=== PATIENT | male | born 1950 | race African-American/Black ===

== ENCOUNTER 2018-09-27 11:15 | Outpatient (CLI) | payer OTHER ==
--- NOTE | 2018-09-30 07:12 | ULT ---
LEFT LOWER EXTREMITY VENOUS ULTRASOUND WITH DOPPLER: HISTORY: Left leg swelling and edema. COMPARISON: None. TECHNIQUE: Osei-scale, color-flow, and Doppler imaging with spectral waveform analysis was performed of the left lower extremity venous system. FINDINGS: There is compressibility, presence of flow, and augmentation in the common femoral vein, femoral vein , and popliteal vein. There is flow in the greater saphenous vein, profunda vein, and posterior tibi al vein. In the left calf, there does appear to be a 4.8 x 1.5 x 3.4 cm nonvascular focus, which may represent a hematoma. Correlate clinically. IMPRESSION: 1. No evidence of thrombus in the left lower extremity deep venous system. 2. Soft tissue echotexture in the calf, which may represent a hematoma. Follow up imaging in 1 week to ensure expected decrease of probable hematoma. Results of the study were discussed with Dr. Barber 09/27/2018 at 12:16 p.m. CODE CR POS: CARLOS
== END 2018-09-27 11:16 | disposition home or self-care (01) ==
LOC: ULT 11:15
PROVIDERS: ATTEND Family Medicine
DX: M79.89 Other specified soft tissue disorders (principal)

== ENCOUNTER 2020-08-24 02:11 | Inpatient (IN) | payer MEDICARE ==
--- NOTE | 2020-08-24 04:06 | PDOC.HHP ---
Hospitalist HPI Shortness of breath History of Present Illness: This is a 70-year-old male patient with a history of hypertension, hy perlipidemia and prostate cancer status post resection who presents today with worsening shortness of breath for the past 6 days. He was transferred from [place] [facility] on account of elevated troponin. Patient notes that his son has Covid. Is been having shortness of breath and had test about 5 days ago which was positive. With worsening shortness of breath and cough with intermittent fever he presented to [place] where he was evaluated. At [place] his blood pressure was 179/93, pulse 94, respiratory 18, saturation 96 on room air. Temperature was 99.5. His labs showed WBC of 4.4, hemoglobin of 12.2 and platelets 126. Also had hyponatremia of 135, creatinine 2.19 from a baseline of 1.88 about 5 months ago. Troponin was noted to be elevated at 0.17. Urinalysis was generally negative and Covid tested positive. Imaging showed no unremarkable changes on chest x-ray, he was started on 1 L normal saline, received doxycycline and aspirin prior to transfer here for higher level care. Allergies/Adverse Reactions: Allergy/AdvReac Type Severity Reaction Status Date / Time No Known Allergies Allergy Unverified 03/31/13 10:14 Home Medications: Medication Instructions Recorded Confirmed Type Allopurinol [Zyloprim] 300 mg PO DAILY 03/31/13 03/31/13 History Amlodipine [Norvasc] 10 mg PO DAILY 03/31/13 03/31/13 History Atorvastatin Calcium [Lipitor] 10 mg PO DAILY 03/31/13 03/31/13 History Fluticasone Propionate [Flovent 44 mcg INH BID 03/31/13 03/31/13 History HFA 44 mcg] Lisinopril/Hydrochlorothiazide 03/31/13 03/31/13 History [Zestoretic] Metoprolol Tartrate [Lopressor] 100 mg PO BID 03/31/13 03/31/13 History hydrALAZINE HCl [Apresoline] 50 mg PO QID 03/31/13 03/31/13 History HYDROcodone/Acetaminophen [[place] 1 each PO Q4HR PRN 04/01/13 04/01/13 History 10-325 Tablet] Warfarin Sodium [Coumadin] 2.5 mg PO DAILY@1700 04/01/13 04/01/13 History Acetaminophen With Codeine 1 - 2 tab PO Q4H PRN 04/02/13 04/02/13 History [Tylenol with Codeine #4 Tablet] Past History: PMHx: Hypertension, hyperlipidemia, prostate cancer PSHx: Prostate resection FHx: None of significance Social: Lives with family, does not smoke or drink alcohol. Hospitalist HPI ROS Constitutional: reports: fever. denies: chills, sweats, weakness Respiratory: reports: cough, dry, shortness of breath, SOB with excertion. denies: hemoptysis Gastrointestinal: denies: nausea, vomiting, abdominal pain Genitourinary: denies: dysuria, frequency, incontinence Neurological: denies: weakness, numbness, incoordination, change in speech All other systems reviewed; all pertinent +/- noted in HPI/Subj Hospitalist Exam General Appearance: awake alert Eye: PERRL, anicteric sclera ENT: normocephalic atraumatic Heart: RRR, no murmur, no gallops, no rubs Respiratory: CTAB, no wheezes, no rales, no ronchi Gastrointestinal: soft, non-tender, non-distended, normal bowel sounds Extremities: no cyanosis, no clubbing, no edema Neurological: cranial nerve grossly intact, no weakness, no focal deficits Psychiatric: normal affect, normal behavior, A&O x 3 Hospitalist H&P A/P Plan: This is a 70-year-old male patient history of hypertension who presents with worsening shortness of breath in the setting of Covid and infection. He was transferred from [place] with elevated troponin with concerns for NSTEMI. COVID-19 infection. Patient is coughing may possibly have pneumonia however not apparent on chest x- ray. Start vitamins D/C and zinc Order CRP ferritin and D-dimer Close monitoring. NSTEMI Unclear etiology. He denies chest pain History of hypertension EKG shows left ventricular hypertrophy with left atrial enlargement however no c oncerning ST segment or T wave abnormalities. This may be related to Covid Patient received aspirin. Hold full anticoagulation for now To reevaluate in a.m. for stress test. Keep n.p.o. Consider cardiology consult in a.m. AVERY/CKD Patient has baseline of up to 1.9 and 2.04. This may be CKD Rehydrate and monitor. Normocytic anemia Hemoglobin the low range of normal Possible iron deficiency of CKD Iron studies Monitor CBC. Hyponatremia Sodium 135a small We will monitor this. VT prophylaxisHeparin CODE STATUSfull
[2020-08-24 05:32] LABS: Troponin I 0.123 ng/mL (< 0.028)
[2020-08-24] MEDS ORDERED: Enoxaparin Sodium 40 MG/0.4 ML SYRINGE SC SCH (09:00)
[2020-08-24] MEDS ORDERED: hydrALAZINE 25 MG TAB PO SCH (09:00)
[2020-08-24] MEDS ORDERED: Non-Formulary Item 1 EACH (Hydralazine Hcl [Apresoline] 50 MG Tab) PO SCH (09:00)
[2020-08-24 09:01] LABS: Troponin I 0.099 ng/mL (< 0.028)
[2020-08-24] MEDS ORDERED: HYDROcodone/Acetaminophen 10/325 mg Tablet PO PRN (11:43)
[2020-08-24 12:10] VITALS: BMI 32.5
[2020-08-24] MEDS: Enoxaparin Sodium 40 MG/0.4 ML SYRINGE SC SCH ×2 (12:23→19:56)
[2020-08-24] MEDS: Amlodipine 10 MG TAB PO SCH (12:43)
[2020-08-24] MEDS: Cholecalciferol (Vitamin D3) 400 UNITS TAB PO SCH (12:43)
[2020-08-24] MEDS: Ascorbic Acid 500 mg Chewable Tablet PO SCH (12:43)
[2020-08-24] MEDS: hydrALAZINE 25 MG TAB PO SCH ×2 (16:17→19:55)
[2020-08-24] MEDS ORDERED: REMDESIVIR (EUA) 200 MG in Sodium Chloride 0.9% 250 ML 210 ML IV SCH (17:00)
[2020-08-24] MEDS ORDERED: Meperidine HCl/PF 25 MG/ML VIAL SLOW IVP SCH (18:30)
[2020-08-24] MEDS: Acetaminophen 650 MG/20.3 ML UDCUP PO PRN (18:33)
[2020-08-24] MEDS: Mometasone 100 MCG/PUFF (1 INHALER) INH SCH (18:42)
[2020-08-24] MEDS: Metoprolol Tartrate 100 MG TAB PO SCH (19:55)
[2020-08-25] MEDS: Benzonatate 100 MG CAP PO PRN ×2 (01:06→14:42)
[2020-08-25] MEDS ORDERED: Melatonin 3 MG TAB ONE (02:31)
[2020-08-25 07:22] LABS: #Lymphocytes 0.8 thou/uL (1.20-3.40); #Monocytes 0.2 thou/uL (0.11-0.59); #Neutrophils 6.2 thou/uL (1.40-6.50); %Basophils 0.2 % (0.0-1.0); %Eosinophils 0.1 % (0.0-10.0); %Lymphocytes 10.9 % (21.0-51.0); %Neutrophils 85.9 % (42.0-75.0); Hemoglobin 12.8 g/dL (14.0-18.0); Mean Corpuscular HGB CONC 31.3 g/dL (32.0-36.0); Mean Corpuscular Hemoglobin 24.3 pg (27.0-31.0); Mean Corpuscular Volume 77.7 fL (78.0-98.0); Mean Platelet Volume 10.7 fL (7.4-10.4); Platelet Count 142 thou/uL (130-400); RBC Distribution Width 13.1 % (11.5-14.5); Red Blood Cell (RBC) Count 5.25 mill/uL (4.70-6.10); White Blood Cell (WBC) Count 7.2 thou/uL (4.8-10.8)
[2020-08-25 07:24] LABS: Anion Gap 16 mmol/L (10-20); BUN (Urea Nitrogen) 25 mg/dL (8.4-25.7); Calc. Creatinine Clearance 52 mL/min (70-130); Calcium 8.6 mg/dL (7.8-10.44); Carbon Dioxide 24 mmol/L (23-31); Chloride 97 mmol/L (98-107); Glucose 150 mg/dL (80-115); Potassium 3.8 mmol/L (3.5-5.1); Sodium 133 mmol/L (136-145)
[2020-08-25] MEDS: Mometasone 100 MCG/PUFF (1 INHALER) INH SCH ×2 (07:58→18:00)
[2020-08-25] MEDS: Ascorbic Acid 500 mg Chewable Tablet PO SCH (11:07)
[2020-08-25] MEDS: Enoxaparin Sodium 40 MG/0.4 ML SYRINGE SC SCH ×2 (11:07→20:23)
[2020-08-25] MEDS: Metoprolol Tartrate 100 MG TAB PO SCH ×2 (11:08→20:22)
[2020-08-25] MEDS: hydrALAZINE 25 MG TAB PO SCH ×3 (11:08→20:22)
[2020-08-25] MEDS: Cholecalciferol (Vitamin D3) 400 UNITS TAB PO SCH (11:08)
[2020-08-25] MEDS: Amlodipine 10 MG TAB PO SCH (11:08)
[2020-08-25] MEDS: Aspirin 81 mg Enteric Coated Tablet PO SCH (11:08)
[2020-08-25] MEDS: Allopurinol 300 MG TAB PO SCH (11:08)
[2020-08-25] MEDS: Acetaminophen 650 MG/20.3 ML UDCUP PO PRN (11:09)
--- NOTE | 2020-08-25 11:48 | PDOC.HOSPP ---
- Subjective Encounter Date: 08/25/20 Encounter Time: 07:00 Subjective: Patient seen for follow-up regarding COVID-19 infection. He denies chest pain or shortness of breath. - Objective Vital Signs & Weight: Vital Signs (12 hours) Temp Pulse Resp BP Pulse Ox 08/25/20 11:35 99.2 F 94 18 175/99 H 96 08/25/20 11:08 96 08/25/20 08:00 100.7 F H 96 20 150/90 H 95 08/25/20 04:00 100.1 F H 97 22 H 145/86 H 95 Weight Weight 220 lb I&O: 08/24/20 08/25/20 08/26/20 06:59 06:59 06:59 Intake Total 845 300 Balance 845 300 Result Diagrams: 08/25/20 04:23 08/25/20 03:30 Additional Labs: Labs and MAR reviewed by me EKG Reviewed by me: Yes (Telemetry shows normal sinus rhythm) Hospitalist ROS - Review of Systems Constitutional: denies: fever, chills, sweats, weakness, malaise Respiratory: reports: cough, dry Cardiovascular: denies: chest pain, palpitations, orthopnea, paroxysmal noc. dyspnea, edema, light headedness - Medication Medications: Active Medications Generic Name Dose Route Start Last Admin Trade Name Freq PRN Reason Stop Dose Admin Acetaminophen 650 mg 08/24/20 16:21 08/25/20 11:09 Acetaminophen 650 Mg/20.3 Ml Udcup PO 650 mg Q6H PRN Administration Fever > 101 Allopurinol 300 mg 08/25/20 09:00 08/25/20 11:08 Allopurinol 300 Mg Tab PO 300 mg DAILY FRANCO Administration Amlodipine Besylate 10 mg 08/24/20 09:00 08/25/20 11:08 Amlodipine 10 Mg Tab PO 10 mg DAILY FRANCO Administration Ascorbic Acid 1,000 mg 08/24/20 09:00 08/25/20 11:07 Ascorbic Acid 500 Mg Chewable Tablet PO 1,000 mg DAILY FRANCO Administration Aspirin 81 mg 08/25/20 09:00 08/25/20 11:08 Aspirin 81 Mg Enteric Coated Tablet PO 81 mg DAILY FRANCO Administration Benzonatate 100 mg 08/25/20 00:23 08/25/20 01:06 Benzonatate 100 Mg Cap PO 100 mg TIDPRN PRN Administration Cough Cholecalciferol 400 units 08/24/20 09:00 08/25/20 11:08 Cholecalciferol (Vitamin D3) 400 Units Tab PO 400 units DAILY FRANCO Administration Enoxaparin Sodium 40 mg 08/24/20 09:00 08/25/20 11:07 Enoxaparin Sodium 40 Mg/0.4 Ml Syringe SC 40 mg 0900,2100 FRANCO Administration Hydralazine HCl 100 mg 08/24/20 15:00 08/25/20 11:08 Hydralazine 25 Mg Tab PO 100 mg TID FRANCO Administration Metoprolol Tartrate 100 mg 08/24/20 21:00 08/25/20 11:08 Metoprolol Tartrate 100 Mg Tab PO 100 mg BID FRANCO Administration Mometasone Furoate 100 mcg 08/24/20 18:30 08/25/20 07:58 Mometasone 100 Mcg/Puff (1 Inhaler) INH 1 inh BID-RT FRANCO Administration Hospitalist Exam Vitals: Vital Signs (12 hours) Temp Pulse Resp BP Pulse Ox 08/25/20 11:35 99.2 F 94 18 175/99 H 96 08/25/20 11:08 96 08/25/20 08:00 100.7 F H 96 20 150/90 H 95 08/25/20 04:00 100.1 F H 97 22 H 145/86 H 95 Weight Weight 220 lb General Appearance: awake alert Eye: anicteric sclera ENT: normocephalic atraumatic Neck: supple Heart: RRR Respiratory: CTAB Gastrointestinal: soft Skin: no rashes Psychiatric: normal affect, normal behavior Hosp A/P - Plan COVID-19 infection. Patient received convalescent plasma yesterday. Continue vitamin D and zinc. Patient has been started on remdesivir. NSTEMI Non-ST elevation myocardial infarction type II secondary to COVID-19 infection Patient denies any chest pain. CKD stage III Stable Hyponatremia Mild, likely asymptomatic
[2020-08-25] MEDS ORDERED: Melatonin 3 MG TAB PO PRN (16:35)
[2020-08-25] MEDS: REMDESIVIR (EUA) 100 MG in Sodium Chloride 0.9% 250 ML 230 ML IV SCH (16:50)
[2020-08-25] MEDS: Guaifenesin DM 100-10/5 ML UDCUP PO PRN ×2 (16:50→22:05)
[2020-08-25] MEDS: Atorvastatin Calcium 10 MG TAB PO SCH (20:22)
[2020-08-26] MEDS: Mometasone 100 MCG/PUFF (1 INHALER) INH SCH ×2 (06:45→17:54)
[2020-08-26] MEDS: hydrALAZINE 25 MG TAB PO SCH ×3 (08:26→20:11)
[2020-08-26] MEDS: Allopurinol 300 MG TAB PO SCH (08:27)
[2020-08-26] MEDS: Aspirin 81 mg Enteric Coated Tablet PO SCH (08:27)
[2020-08-26] MEDS: Cholecalciferol (Vitamin D3) 400 UNITS TAB PO SCH (08:27)
[2020-08-26] MEDS: Enoxaparin Sodium 40 MG/0.4 ML SYRINGE SC SCH ×2 (08:27→20:15)
[2020-08-26] MEDS: Ascorbic Acid 500 mg Chewable Tablet PO SCH (08:27)
[2020-08-26] MEDS: Amlodipine 10 MG TAB PO SCH (08:27)
[2020-08-26] MEDS: Metoprolol Tartrate 100 MG TAB PO SCH ×2 (08:27→20:15)
--- NOTE | 2020-08-26 14:23 | PDOC.HOSPP ---
- Subjective Encounter Date: 08/26/20 Encounter Time: 07:00 Subjective: Patient seen in follow-up for COVID-19 infection. He reports cough is better. - Objective Vital Signs & Weight: Vital Signs (12 hours) Temp Pulse Resp BP BP Pulse Ox 08/26/20 12:28 98.1 F 78 18 132/72 98 08/26/20 08:37 98.3 F 77 18 141/83 H 94 L 08/26/20 03:33 98.0 F 78 24 H 176/97 H 92 L Weight Weight 212 lb 3.2 oz I&O: 08/25/20 08/26/20 08/27/20 06:59 06:59 06:59 Intake Total 845 1350 Balance 845 1350 Result Diagrams: 08/25/20 04:23 08/25/20 03:30 Additional Labs: I reviewed patient's labs and MAR EKG Reviewed by me: Yes (Normal sinus rhythm on telemetry) Hospitalist ROS - Review of Systems Respiratory: reports: cough, sputum. denies: dry, shortness of breath, hemoptysis, SOB with excertion, pleuritic pain, wheezing Cardiovascular: denies: chest pain, palpitations, orthopnea, paroxysmal noc. dyspnea, edema, light headedness - Medication Medications: Active Medications Generic Name Dose Route Start Last Admin Trade Name Freq PRN Reason Stop Dose Admin Acetaminophen 650 mg 08/24/20 16:21 08/25/20 11:09 Acetaminophen 650 Mg/20.3 Ml Udcup PO 650 mg Q6H PRN Administration Fever > 101 Allopurinol 300 mg 08/25/20 09:00 08/26/20 08:27 Allopurinol 300 Mg Tab PO 300 mg DAILY FRANCO Administration Amlodipine Besylate 10 mg 08/24/20 09:00 08/26/20 08:27 Amlodipine 10 Mg Tab PO 10 mg DAILY FRANCO Administration Ascorbic Acid 1,000 mg 08/24/20 09:00 08/26/20 08:27 Ascorbic Acid 500 Mg Chewable Tablet PO 1,000 mg DAILY FRANCO Administration Aspirin 81 mg 08/25/20 09:00 08/26/20 08:27 Aspirin 81 Mg Enteric Coated Tablet PO 81 mg DAILY FRANCO Administration Atorvastatin Calcium 20 mg 08/25/20 21:00 08/25/20 20:22 Atorvastatin Calcium 10 Mg Tab PO 20 mg HS FRANCO Administration Benzonatate 100 mg 08/25/20 00:23 08/25/20 14:42 Benzonatate 100 Mg Cap PO 100 mg TIDPRN PRN Administration Cough Cholecalciferol 400 units 08/24/20 09:00 08/26/20 08:27 Cholecalciferol (Vitamin D3) 400 Units Tab PO 400 units DAILY FRANCO Administration Enoxaparin Sodium 40 mg 08/24/20 09:00 08/26/20 08:27 Enoxaparin Sodium 40 Mg/0.4 Ml Syringe SC 40 mg 0900,2100 FRANCO Administration Guaifenesin/Dextromethorphan 15 ml 08/25/20 15:17 08/25/20 22:05 Guaifenesin Dm 100-10/5 Ml Udcup PO 15 ml Q4H PRN Administration Cough Hydralazine HCl 100 mg 08/24/20 15:00 08/26/20 08:26 Hydralazine 25 Mg Tab PO 100 mg TID FRANCO Administration Remdesivir 100 mg/ Sodium 250 mls @ 250 mls/hr 08/25/20 17:00 08/25/20 16:50 Chloride IV 08/28/20 17:59 250 mls 1700 FRANCO Administration Metoprolol Tartrate 100 mg 08/24/20 21:00 08/26/20 08:27 Metoprolol Tartrate 100 Mg Tab PO 100 mg BID FRANCO Administration Mometasone Furoate 100 mcg 08/24/20 18:30 08/26/20 06:45 Mometasone 100 Mcg/Puff (1 Inhaler) INH 1 inh BID-RT FRANCO Administration Hospitalist Exam Vitals: Vital Signs (12 hours) Temp Pulse Resp BP BP Pulse Ox 08/26/20 12:28 98.1 F 78 18 132/72 98 08/26/20 08:37 98.3 F 77 18 141/83 H 94 L 08/26/20 03:33 98.0 F 78 24 H 176/97 H 92 L Weight Weight 212 lb 3.2 oz General Appearance: awake alert Eye: anicteric sclera ENT: normocephalic atraumatic Neck: supple Heart: RRR Respiratory: rales, rhonchi Gastrointestinal: soft, non-tender Skin: no rashes Psychiatric: normal affect, normal behavior Hosp A/P - Plan COVID-19 infection. Status post convalescent plasma NSTEMI Non-ST elevation myocardial infarction type II secondary to COVID-19 infection CKD stage III Stable Hyponatremia Mild, likely asymptomatic Disposition: Likely home once remdesivir therapy is complete. Unclear at this time whether he will need home oxygen.
[2020-08-26] MEDS: REMDESIVIR (EUA) 100 MG in Sodium Chloride 0.9% 250 ML 230 ML IV SCH (16:43)
[2020-08-26] MEDS: Atorvastatin Calcium 10 MG TAB PO SCH (20:11)
[2020-08-27] MEDS: Mometasone 100 MCG/PUFF (1 INHALER) INH SCH ×2 (04:41→17:12)
[2020-08-27 05:10] LABS: ALT (SGPT) 38 U/L (8-55); AST (SGOT) 50 U/L (5-34); Albumin 3.5 g/dL (3.4-4.8); Alkaline Phosphatase 58 U/L (40-110); Bilirubin, Direct 0.6 mg/dL (0.1-0.3); Bilirubin, Total 1.1 mg/dL (0.2-1.2); Protein, Total 7.3 g/dL (5.8-8.1)
[2020-08-27] MEDS: hydrALAZINE 25 MG TAB PO SCH ×3 (08:59→21:11)
[2020-08-27] MEDS: Cholecalciferol (Vitamin D3) 400 UNITS TAB PO SCH (09:00)
[2020-08-27] MEDS: Metoprolol Tartrate 100 MG TAB PO SCH ×2 (09:00→21:12)
[2020-08-27] MEDS: Amlodipine 10 MG TAB PO SCH (09:00)
[2020-08-27] MEDS: Ascorbic Acid 500 mg Chewable Tablet PO SCH (09:00)
[2020-08-27] MEDS: Enoxaparin Sodium 40 MG/0.4 ML SYRINGE SC SCH ×2 (09:01→21:13)
[2020-08-27] MEDS: Allopurinol 300 MG TAB PO SCH (09:01)
[2020-08-27] MEDS: Aspirin 81 mg Enteric Coated Tablet PO SCH (09:01)
[2020-08-27] MEDS ORDERED: cloNIDine 0.2mg/24 Hour PATCH TD SCH (16:00)
[2020-08-27] MEDS: REMDESIVIR (EUA) 100 MG in Sodium Chloride 0.9% 250 ML 230 ML IV SCH (17:10)
--- NOTE | 2020-08-27 19:04 | PDOC.HOSPP ---
- Subjective Encounter Date: 08/27/20 Encounter Time: 18:00 Subjective: Patient seen for follow-up regarding COVID-19 infection. No new complaints. - Objective Vital Signs & Weight: Vital Signs (12 hours) Temp Pulse Resp BP BP Pulse Ox 08/27/20 15:51 98.1 F 79 24 H 138/80 95 08/27/20 12:46 98.4 F 68 23 H 146/90 H 98 08/27/20 08:59 93 L 08/27/20 08:00 98.4 F 88 21 H 161/89 H 93 L Weight Weight 212 lb 3.2 oz I&O: 08/26/20 08/27/20 08/28/20 06:59 06:59 06:59 Intake Total 1350 1177 Balance 1350 1177 Result Diagrams: 08/25/20 04:23 08/25/20 03:30 Additional Labs: Labs and MAR reviewed by nv Hospitalist ROS - Review of Systems Respiratory: reports: cough, sputum Cardiovascular: denies: chest pain, palpitations, orthopnea, paroxysmal noc. dyspnea, edema, light headedness - Medication Medications: Active Medications Generic Name Dose Route Start Last Admin Trade Name Freq PRN Reason Stop Dose Admin Acetaminophen 650 mg 08/24/20 16:21 08/25/20 11:09 Acetaminophen 650 Mg/20.3 Ml Udcup PO 650 mg Q6H PRN Administration Fever > 101 Allopurinol 300 mg 08/25/20 09:00 08/27/20 09:01 Allopurinol 300 Mg Tab PO 300 mg DAILY FRANCO Administration Amlodipine Besylate 10 mg 08/24/20 09:00 08/27/20 09:00 Amlodipine 10 Mg Tab PO 10 mg DAILY FRANCO Administration Ascorbic Acid 1,000 mg 08/24/20 09:00 08/27/20 09:00 Ascorbic Acid 500 Mg Chewable Tablet PO 1,000 mg DAILY FRANCO Administration Aspirin 81 mg 08/25/20 09:00 08/27/20 09:01 Aspirin 81 Mg Enteric Coated Tablet PO 81 mg DAILY FRANCO Administration Atorvastatin Calcium 20 mg 08/25/20 21:00 08/26/20 20:11 Atorvastatin Calcium 10 Mg Tab PO 20 mg HS FRANCO Administration Benzonatate 100 mg 08/25/20 00:23 08/25/20 14:42 Benzonatate 100 Mg Cap PO 100 mg TIDPRN PRN Administration Cough Cholecalciferol 400 units 08/24/20 09:00 08/27/20 09:00 Cholecalciferol (Vitamin D3) 400 Units Tab PO 400 units DAILY FRANCO Administration Clonidine 0.2 mg 08/27/20 16:00 08/27/20 15:27 Clonidine 0.2mg/24 Hour Patch TD 0.2 mg [id number]@1600 FRANCO Administration Enoxaparin Sodium 40 mg 08/24/20 09:00 08/27/20 09:01 Enoxaparin Sodium 40 Mg/0.4 Ml Syringe SC 40 mg 0900,2099 FRANCO Administration Guaifenesin/Dextromethorphan 15 ml 08/25/20 15:17 08/25/20 22:05 Guaifenesin Dm 100-10/5 Ml Udcup PO 15 ml Q4H PRN Administration Cough Hydralazine HCl 100 mg 08/24/20 15:00 08/27/20 15:24 Hydralazine 25 Mg Tab PO 100 mg TID FRANCO Administration Remdesivir 100 mg/ Sodium 250 mls @ 250 mls/hr 08/25/20 17:00 08/27/20 17:10 Chloride IV 08/28/20 17:59 250 mls 1700 FRANCO Administration Metoprolol Tartrate 100 mg 08/24/20 21:00 08/27/20 09:00 Metoprolol Tartrate 100 Mg Tab PO 100 mg BID FRANCO Administration Mometasone Furoate 100 mcg 08/24/20 18:30 08/27/20 17:12 Mometasone 100 Mcg/Puff (1 Inhaler) INH 1 inh BID-RT FRANCO Administration Hospitalist Exam Vitals: Vital Signs (12 hours) Temp Pulse Resp BP BP Pulse Ox 08/27/20 15:51 98.1 F 79 24 H 138/80 95 08/27/20 12:46 98.4 F 68 23 H 146/90 H 98 08/27/20 08:59 93 L 08/27/20 08:00 98.4 F 88 21 H 161/89 H 93 L Weight Weight 212 lb 3.2 oz General Appearance: awake alert ENT: normocephalic atraumatic Neck: supple Heart: RRR Respiratory: rhonchi Gastrointestinal: non-tender Skin: no rashes Psychiatric: normal affect Hosp A/P - Plan COVID-19 infection. Status post convalescent plasma Patient receiving remdesivir, last dose tomorrow NSTEMI Non-ST elevation myocardial infarction type II secondary to COVID-19 infection CKD stage III Stable Hyponatremia Mild Disposition: Likely home once remdesivir therapy is complete. Unclear at this time whether he will need home oxygen.
[2020-08-27] MEDS: Atorvastatin Calcium 10 MG TAB PO SCH (21:12)
[2020-08-28 05:50] LABS: ALT (SGPT) 52 U/L (8-55); AST (SGOT) 61 U/L (5-34); Albumin 3.4 g/dL (3.4-4.8); Alkaline Phosphatase 58 U/L (40-110); Bilirubin, Direct 0.5 mg/dL (0.1-0.3); Bilirubin, Total 1.1 mg/dL (0.2-1.2); Protein, Total 7.3 g/dL (5.8-8.1)
[2020-08-28] MEDS: hydrALAZINE 25 MG TAB PO SCH ×2 (08:40→15:23)
[2020-08-28] MEDS: Ascorbic Acid 500 mg Chewable Tablet PO SCH (08:40)
[2020-08-28] MEDS: Enoxaparin Sodium 40 MG/0.4 ML SYRINGE SC SCH (08:40)
[2020-08-28] MEDS: Aspirin 81 mg Enteric Coated Tablet PO SCH (08:40)
[2020-08-28] MEDS: Allopurinol 300 MG TAB PO SCH (08:40)
[2020-08-28] MEDS: Cholecalciferol (Vitamin D3) 400 UNITS TAB PO SCH (08:41)
[2020-08-28] MEDS: Metoprolol Tartrate 100 MG TAB PO SCH (08:41)
[2020-08-28] MEDS: Amlodipine 10 MG TAB PO SCH (08:41)
[2020-08-28] MEDS: Mometasone 100 MCG/PUFF (1 INHALER) INH SCH (13:06)
[2020-08-28] MEDS: REMDESIVIR (EUA) 100 MG in Sodium Chloride 0.9% 250 ML 230 ML IV SCH (15:23)
[2020-08-28 15:47] VITALS: BP 133/78; TEMP 98.3
--- NOTE | 2020-08-28 15:57 | PDOC.DS.DS ---
Provider Date of Admission: 08/25/20 11:43 Date of Discharge: 08/28/20 Admitting Provider: Tonny Gaitan MD Consultations: None Primary Care Physician: Bella Barber DO Course Hospital Course: Discharge diagnosis: 1. Acute hypoxic respiratory failure 2. COVID-19 pneumonia 3. Hyponatremia Hospital course: Patient is a pleasant 70-year-old gentleman who was admitted to the hospital on August 24, 2020 for COVID-19 pneumonia. He was treated with oxygen, dexametha sone, vitamin C, zinc and remdesivir. He improved clinically and is being discharged home in a stable condition. Many thanks for allowing me to participate in your patient's care. Please feel free to contact me with any questions or concerns. Discharge destination: Home Total amount of time spent coordinating this discharge: 25 minutes Resuscitation Status: 08/24/20 04:02 Resuscitation Status Routine Resuscitation Status: FULL: Full Resuscitation Lab Results: 08/25/20 04:23 08/25/20 03:30 Abnormal Lab Results - Last 48 hrs 08/24/20 08:22: Crossmatch See Detail 08/27/20 04:09: Direct Bilirubin 0.6 H, AST 50 H 08/28/20 04:54: Direct Bilirubin 0.5 H, AST 61 H Vitals: Vital Signs (12 hours) Temp Pulse Resp BP BP Pulse Ox 08/28/20 15:46 98.3 F 73 18 133/78 94 L 08/28/20 11:35 99.1 F 73 18 129/76 92 L 08/28/20 08:00 98.3 F 79 18 147/77 H 93 L 08/28/20 04:00 97.3 F L 70 16 156/80 H 93 L Weight Weight 212 lb 3.2 oz Physical Exam: The patient was seen and examined on the day of discharge. Plan Prescriptions: Dexamethasone 6 mg PO DAILY #5 tablet Ascorbic Acid [Vitamin C] 1,000 mg PO DAILY #5 tablet Zinc Sulfate [Zinc-220] 220 mg PO DAILY #5 capsule Home Medications: Medication Instructions Recorded Confirmed Type Amlodipine [Norvasc] 10 mg PO DAILY 03/31/13 08/24/20 History Metoprolol Tartrate [Lopressor] 100 mg PO BID 03/31/13 08/24/20 History HYDROcodone/Acetaminophen [[place] 1 each PO Q4HR PRN 04/01/13 08/24/20 History 10-325 Tablet] Allopurinol 150 mg PO DAILY 08/24/20 08/24/20 History Aspirin [Aspirin EC] 81 mg PO DAILY 08/24/20 08/24/20 History Atorvastatin Calcium 10 mg PO DAILY 08/24/20 08/24/20 History Calcitriol [Rocaltrol] 0.25 mcg PO DAILY 08/24/20 08/24/20 History Isosorbide Mononitrate [Isosorbide 30 mg PO DAILY 08/24/20 08/24/20 History Mononitrate ER] Losartan Potassium 50 mg PO BID 08/24/20 08/24/20 History hydrALAZINE HCl [Hydralazine HCl] 100 mg PO TID 08/24/20 08/24/20 History Ascorbic Acid [Vitamin C] 1,000 mg PO DAILY #5 tablet 08/28/20 Rx Dexamethasone 6 mg PO DAILY #5 tablet 08/28/20 Rx Zinc Sulfate [Zinc-220] 220 mg PO DAILY #5 capsule 08/28/20 Rx Allergies: hydromorphone [From Dilaudid] Allergy (Verified 08/25/20 13:10) Discharge Instructions:: Purchase oximeter and check your oxygen levels 3 times a day and whenever short of breath. Seek medical help for oxygen saturation less than 90%. Activity:: Activity as Tolerated Nourishment:: Heart Healthy Diet Referrals: Bella Barber DO [Primary Care Provider] - 3 Days (Call the office to schedule an appointment within the next 3 days) Disposition: HOME Quality CORE MEASURES:: N/A
--- NOTE | 2020-08-30 05:28 | PQF ---
CLINICAL DOCUMENTATION CLARIFICATION FORM: Dear : Edvin Santana Date / Time: 08/30/20 05:27 Please exercise your independent, professional judgment in responding to the clarification form. Clinical indicators are provided on the bottom of this form for your review Please check appropriate box(es): [ x ] Sepsis due to Covid 19 infection [ ] Severe Sepsis due to Covid 19 infection [ ] Localized infection without sepsis [ ] Other diagnosis, please specify [ ] Unable to determine Physician Signature: Date/Time: For continuity of documentation, please document condition throughout progress notes and discharge summary. Thank You. To be completed by CDI/Coding staff for physician review: Present Clinical Indicators - Signs / Symptoms / Labs Results and Location in Medical Record [x] Acute hypoxic respiratory failure DS 08/28 [x] Covid19 PNA DS 08/28 [x] Chest Xray unremarkable HP 08/24 [x] Cyix=656.6 Cavcu=197 CJ=130/81 Resp=34 Vital Signs 08/24 [x] WBC 08/25=7.2 Laboratory 08/25 [x] Anion Gap: 08/25=16 Laboratory 08/25 Present Risk Factors Results and Location in Medical Record [x] Covid19 PNA DS 08/28 [x] 70 years old male DS 08/28 Present Treatments Results and Location in Medical Record [x] Remdesivir 200mg IV SEP 21 [x] IVF SEP 21 [x] Convalescent Plasma Blood transfusion 08/24 CDS/Shingle Trimmer Signature: Donn Cordova Phone #: [phone] Date/Time: 08/30/20 This is a permanent part of the Medical Record [facility]
== END 2020-08-28 17:46 | disposition home or self-care (01) | DRG 871 ==
LOC: ERS 02:11 → ERHOLD 04:43 → 2SE 11:36 → OBSVTOIN 08-25 11:43
PROVIDERS: ADMIT Student in an Organized Health Care Education/Training Program; ATTEND Internal Medicine
PROC: XW033E5 Introduction of Remdesivir Anti-infective into Peripheral Vein, Percutaneous Approach, New Technology Group 5 (ICD-10-PCS; principal; 2020-08-24)
PROC: XW13325 Transfusion of Convalescent Plasma (Nonautologous) into Peripheral Vein, Percutaneous Approach, New Technology Group 5 (ICD-10-PCS; 2020-08-24)
PROC: 8E0ZXY6 Isolation (ICD-10-PCS; 2020-08-24)
DX: A41.89 Other specified sepsis (principal); U07.1 COVID-19; J12.82 Pneumonia due to coronavirus disease 2019; I21.A1 Myocardial infarction type 2; J96.01 Acute respiratory failure with hypoxia; N17.9 Acute kidney failure, unspecified; E87.1 Hypo-osmolality and hyponatremia; I12.9 Hypertensive chronic kidney disease with stage 1 through stage 4 chronic kidney disease, or unspecified chronic kidney disease; E78.5 Hyperlipidemia, unspecified; D63.1 Anemia in chronic kidney disease; N18.30 Chronic kidney disease, stage 3 unspecified; Z85.46 Personal history of malignant neoplasm of prostate; Z79.01 Long term (current) use of anticoagulants; Z79.51 Long term (current) use of inhaled steroids; Z79.899 Other long term (current) drug therapy; Z79.82 Long term (current) use of aspirin; Z88.5 Allergy status to narcotic agent
CPT/HCPCS: 36415; 36430; 80048; 80076; 82728; 85025; 85379; 86140; 86850; 86870; 86900; 86901; 86922; 96365; 96372; 96375; 99285; G0378; J1650; J2175; J7050; P9017

== ENCOUNTER 2020-11-08 10:32 | Outpatient (CLI) | payer MEDICARE | END 2020-11-08 10:33 | disposition home or self-care (01) | LOC: BICULT 10:32 | PROVIDERS: ATTEND Internal Medicine Nephrology | DX: N18.30 Chronic kidney disease, stage 3 unspecified (principal); Q61.3 Polycystic kidney, unspecified | CPT/HCPCS: 36415; 76770; 80069; 81001; 82570; 84156 ==

== ENCOUNTER 2022-05-05 10:23 | Outpatient (CLI) | payer MEDICARE | END 2022-05-05 10:24 | disposition home or self-care (01) | LOC: TBSIIMAG 10:23 | PROVIDERS: ATTEND Family Medicine | DX: S76.112S Strain of left quadriceps muscle, fascia and tendon, sequela (principal) ==

== ENCOUNTER 2022-09-20 11:52 | Inpatient (IN) | payer MEDICARE ==
[2022-09-20 13:05] LABS: #Eosinphils 0.1 thou/uL (0.0-0.7); #Lymphocytes 1.4 thou/uL (1.20-3.40); #Monocytes 0.5 thou/uL (0.11-0.59); #Neutrophils 8.4 thou/uL (1.40-6.50); %Basophils 0.2 % (0.0-1.0); %Eosinophils 0.8 % (0.0-10.0); %Lymphocytes 13.5 % (21.0-51.0); %Monocytes 5.1 % (0.0-10.0); %Neutrophils 80.5 % (42.0-75.0); Hemoglobin 7.7 g/dL (14.0-18.0); Mean Corpuscular HGB CONC 30.2 g/dL (32.0-36.0); Mean Corpuscular Hemoglobin 24.3 pg (27.0-31.0); Mean Corpuscular Volume 80.5 fl (78.0-98.0); Mean Platelet Volume 8.6 fL (7.4-10.4); Platelet Count 215 10x3/uL (130-400); RBC Distribution Width 13.7 % (11.5-14.5); Red Blood Cell (RBC) Count 3.16 mill/uL (4.70-6.10); White Blood Cell (WBC) Count 10.5 10x3/uL (4.8-10.8)
[2022-09-20 13:17] LABS: Anion Gap 13 mmol/L (10-20); BUN (Urea Nitrogen) 71 mg/dL (8.4-25.7); Calc. Creatinine Clearance 0 mL/min (70-130); Carbon Dioxide 21 mmol/L (23-31); Chloride 107 mmol/L (98-107); Potassium 4.8 mmol/L (3.5-5.1); Sodium 136 mmol/L (136-145)
[2022-09-20 13:18] LABS: ALT (SGPT) 10 U/L (8-55); AST (SGOT) 11 U/L (5-34); Albumin 3.7 g/dL (3.4-4.8); Alkaline Phosphatase 42 U/L (40-110); Bilirubin, Total 0.4 mg/dL (0.2-1.2); Calcium 8.6 mg/dL (7.8-10.44); Estimated GFR 25; Globulin 2.9 g/dL (2.4-3.5); Glucose 133 mg/dL (80-115); Lipase 17 U/L (8-78); Protein, Total 6.6 g/dL (5.8-8.1)
[2022-09-20 13:24] LABS: INR-International Normal Ratio 1.1; PTT 23.3 sec (22.9-36.1); Prothrombin Time 14.8 sec (12.0-14.7)
[2022-09-20] MEDS ORDERED: Ondansetron PF 4 MG/2 ML Vial IVP PRN (14:52)
[2022-09-20] MEDS ORDERED: Acetaminophen 325 MG TAB PO PRN (14:52)
[2022-09-20] MEDS ORDERED: Acetaminophen 650 MG Suppository PR PRN (14:52)
[2022-09-20] MEDS ORDERED: Ondansetron ODT 4 MG TAB PO PRN (14:52)
[2022-09-20 18:20] LABS: Hemoglobin 7.3 g/dL (14.0-18.0)
[2022-09-20] MEDS: Sodium Chloride 0.9% 1,000 ML IV SCH (18:47)
[2022-09-20 18:55] VITALS: BMI 35.9
[2022-09-21] MEDS: Pantoprazole 40 MG VIAL IVP SCH ×3 (00:13→19:47)
[2022-09-21 03:37] LABS: SARS-CoV-2 NAA Rapid Test Not Detected (NotDetected)
[2022-09-21 04:57] LABS: #Eosinphils 0.2 thou/uL (0.0-0.7); #Lymphocytes 2.5 thou/uL (1.20-3.40); #Monocytes 0.8 thou/uL (0.11-0.59); #Neutrophils 7.3 thou/uL (1.40-6.50); %Basophils 0.1 % (0.0-1.0); %Eosinophils 1.6 % (0.0-10.0); %Lymphocytes 23.5 % (21.0-51.0); %Monocytes 7.1 % (0.0-10.0); %Neutrophils 67.7 % (42.0-75.0); Hemoglobin 7.8 g/dL (14.0-18.0); Mean Corpuscular HGB CONC 31.5 g/dL (32.0-36.0); Mean Corpuscular Hemoglobin 25.2 pg (27.0-31.0); Mean Corpuscular Volume 79.9 fl (78.0-98.0); Mean Platelet Volume 9.2 fL (7.4-10.4); Platelet Count 181 10x3/uL (130-400); RBC Distribution Width 14.2 % (11.5-14.5); Red Blood Cell (RBC) Count 3.08 mill/uL (4.70-6.10); White Blood Cell (WBC) Count 10.8 10x3/uL (4.8-10.8)
[2022-09-21] MEDS: Sodium Chloride 0.9% 1,000 ML IV SCH ×3 (05:07→19:47)
[2022-09-21 05:13] LABS: Anion Gap 12 mmol/L (10-20); BUN (Urea Nitrogen) 64 mg/dL (8.4-25.7); Calc. Creatinine Clearance 33 mL/min (70-130); Carbon Dioxide 20 mmol/L (23-31); Chloride 111 mmol/L (98-107); Estimated GFR 23; Glucose 119 mg/dL (80-115); Potassium 4.6 mmol/L (3.5-5.1); Sodium 138 mmol/L (136-145)
[2022-09-21 05:36] LABS: Hemoglobin 7.3 g/dL (14.0-18.0)
[2022-09-21 12:13] LABS: Hemoglobin 7.7 g/dL (14.0-18.0)
[2022-09-21] MEDS ORDERED: PROPOFOL 200 MG/20 ML VIAL ONE (12:17)
[2022-09-22 04:43] LABS: #Eosinphils 0.3 thou/uL (0.0-0.7); #Lymphocytes 2.6 thou/uL (1.20-3.40); #Monocytes 0.7 thou/uL (0.11-0.59); #Neutrophils 7.3 thou/uL (1.40-6.50); %Basophils 0.1 % (0.0-1.0); %Eosinophils 2.3 % (0.0-10.0); %Lymphocytes 24.4 % (21.0-51.0); %Monocytes 6.3 % (0.0-10.0); %Neutrophils 66.9 % (42.0-75.0); Hemoglobin 7.2 g/dL (14.0-18.0); Mean Corpuscular HGB CONC 31.2 g/dL (32.0-36.0); Mean Corpuscular Hemoglobin 24.8 pg (27.0-31.0); Mean Corpuscular Volume 79.5 fl (78.0-98.0); Mean Platelet Volume 9.3 fL (7.4-10.4); Platelet Count 154 10x3/uL (130-400); RBC Distribution Width 14.8 % (11.5-14.5); Red Blood Cell (RBC) Count 2.91 mill/uL (4.70-6.10); White Blood Cell (WBC) Count 10.8 10x3/uL (4.8-10.8)
[2022-09-22 05:05] LABS: Anion Gap 11 mmol/L (10-20); BUN (Urea Nitrogen) 43 mg/dL (8.4-25.7); Calc. Creatinine Clearance 35 mL/min (70-130); Calcium 8.9 mg/dL (7.8-10.44); Carbon Dioxide 21 mmol/L (23-31); Chloride 110 mmol/L (98-107); Estimated GFR 24; Glucose 99 mg/dL (80-115); Potassium 4.4 mmol/L (3.5-5.1); Sodium 138 mmol/L (136-145)
[2022-09-22] MEDS: Pantoprazole 40 MG VIAL IVP SCH (10:26)
[2022-09-22] MEDS: Sodium Chloride 0.9% 1,000 ML IV SCH (10:28)
[2022-09-22 15:39] VITALS: BP 168/75; TEMP 97.9
[2022-09-22] MEDS ORDERED: Atorvastatin Calcium 20 MG TAB PO SCH (21:00)
[2022-09-22] MEDS ORDERED: Non-Formulary Item 1 EACH (Nifedipine [Nifedipine Er] 60 MG Tab.Er.24) PO SCH (21:00)
[2022-09-22] MEDS ORDERED: Atorvastatin Calcium 10 MG TAB PO SCH (21:00)
[2022-09-22] MEDS ORDERED: NIFEdipine XL 60 MG TAB PO SCH (21:00)
[2022-09-22] MEDS ORDERED: Metoprolol Tartrate 100 MG TAB PO SCH (21:00)
[2022-09-23] MEDS ORDERED: Non-Formulary Item 1 EACH (Losartan Potassium [Losartan Potassium] 50 MG Tablet) PO SCH (09:00)
[2022-09-23] MEDS ORDERED: Losartan 25 MG TAB PO SCH (09:00)
[2022-09-23] MEDS ORDERED: Calcitriol 0.25 MCG CAP PO SCH (09:00)
[2022-09-23] MEDS ORDERED: Allopurinol 300 MG TAB PO SCH (09:00)
[2022-09-23] MEDS ORDERED: Spironolactone 25 MG TAB PO SCH (09:00)
== END 2022-09-22 18:08 | disposition home or self-care (01) | DRG 378 ==
LOC: ERS 11:52 → EDBD 11:52 → ERHOLD 14:49 → 2NO 17:43 → OBSVTOIN 09-22 10:45
PROVIDERS: ADMIT Internal Medicine; ATTEND Family Medicine
PROC: 30233N1 Transfusion of Nonautologous Red Blood Cells into Peripheral Vein, Percutaneous Approach (ICD-10-PCS; 2022-09-20)
PROC: 0DB78ZX Excision of Stomach, Pylorus, Via Natural or Artificial Opening Endoscopic, Diagnostic (ICD-10-PCS; principal; 2022-09-21)
DX: K26.4 Chronic or unspecified duodenal ulcer with hemorrhage (principal); D62 Acute posthemorrhagic anemia; N17.9 Acute kidney failure, unspecified; I12.9 Hypertensive chronic kidney disease with stage 1 through stage 4 chronic kidney disease, or unspecified chronic kidney disease; E78.5 Hyperlipidemia, unspecified; M10.9 Gout, unspecified; Z20.822 Contact with and (suspected) exposure to COVID-19; N18.30 Chronic kidney disease, stage 3 unspecified; Z88.8 Allergy status to other drugs, medicaments and biological substances; Z79.82 Long term (current) use of aspirin; Z79.899 Other long term (current) drug therapy; Z85.46 Personal history of malignant neoplasm of prostate
CPT/HCPCS: 36415; 36430; 71045; 80048; 80053; 83690; 84484; 85025; 85610; 85730; 86850; 86870; 86900; 86901; 86922; 88305; 88342; 93005; C9113; J2704; J7050; P9016; U0002

== ENCOUNTER 2024-07-18 13:45 | Observation (INO) | payer MEDICARE ==
[2024-07-18] MEDS ORDERED: Ondansetron PF 4 MG/2 ML Vial IVP PRN (14:56)
[2024-07-18] MEDS ORDERED: Acetaminophen 325 MG TAB PO PRN (14:56)
[2024-07-18] MEDS ORDERED: Acetaminophen 650 MG Suppository PR PRN (14:56)
[2024-07-18] MEDS ORDERED: Ondansetron ODT 4 MG TAB PO PRN (14:56)
[2024-07-18] MEDS ORDERED: Senokot S 8.6-50 MG TAB PO PRN (14:56)
[2024-07-18] MEDS ORDERED: Albuterol 2.5 MG (3 mL) NEB NEB PRN (15:00)
[2024-07-18] MEDS ORDERED: Benzonatate 100 MG CAP PO PRN (15:01)
[2024-07-18] MEDS: Azithromycin 500 MG in Sodium Chloride 0.9% 250 ML 250 ML IVPB SCH (16:36)
[2024-07-18] MEDS: Lactated Ringer's 1,000 ML IV SCH (16:38)
[2024-07-18] MEDS: Heparin 5,000 UNITS/ML VIAL SC SCH (16:44)
[2024-07-18] MEDS: Ipratropium/Albuterol 3 ML NEB NEB SCH (18:27)
[2024-07-18] MEDS: Pantoprazole DR 40 MG TAB PO SCH (21:15)
[2024-07-18] MEDS: Sodium Bicarbonate Tab 325 MG TAB PO SCH (21:15)
[2024-07-18] MEDS: Metoprolol Tartrate 100 MG TAB PO SCH (21:16)
[2024-07-18] MEDS: NIFEdipine XL 60 MG ER.TAB PO SCH (21:16)
[2024-07-18] MEDS: methylPREDNISolone Sod Succ 40 MG VIAL IVP SCH (21:16)
[2024-07-19] MEDS: cefTRIAXone\\ROCEPHIN 1 GM in Sodium Chloride 0.9% 100 ML IVPB SCH (05:43)
[2024-07-19 06:04] LABS: #Basophils Less than 0.03 10x3/uL (0.0-0.2); #Eosinophils Less than 0.03 10x3/uL (0.0-0.7); %Lymphocytes 14.8 % (21.0-51.0); %Monocytes 5.8 % (0.0-10.0); Hematocrit 31.3 % (42.0-52.0); Hemoglobin 9.2 g/dL (14.0-18.0); Mean Corpuscular HGB CONC 29.4 g/dL (32.0-36.0); Mean Corpuscular Hemoglobin 23.4 pg (27.0-31.0); Mean Corpuscular Volume 79.6 fL (78.0-98.0); Mean Platelet Volume 12.2 fL (7.4-10.4); Platelet Count 167 10x3/uL (130-400); RBC Distribution Width 13.4 % (11.5-14.5); Red Blood Cell (RBC) Count 3.93 mill/uL (4.70-6.10)
[2024-07-19 06:12] LABS: ALT (SGPT) 20 U/L (8-55); AST (SGOT) 31 U/L (5-34); Albumin 3.1 g/dL (3.4-4.8); Alkaline Phosphatase 42 U/L (40-110); Anion Gap 15 mmol/L (10-20); BUN (Urea Nitrogen) 48 mg/dL (8.4-25.7); Bilirubin, Total 0.3 mg/dL (0.2-1.2); Calc. Creatinine Clearance 23 mL/min (70-130); Calcium 8.3 mg/dL (7.8-10.44); Carbon Dioxide 23 mmol/L (23-31); Chloride 105 mmol/L (98-107); Estimated GFR 14; Glucose 149 mg/dL (83-110); Protein, Total 7.1 g/dL (5.8-8.1); Sodium 139 mmol/L (136-145)
[2024-07-19] MEDS: Terazosin HCl 5 MG CAP PO SCH (09:04)
[2024-07-19] MEDS: Oseltamivir 6 MG/ML ORAL SUSP PO SCH (09:04)
[2024-07-19 12:25] VITALS: BP 139/84; TEMP 97.5
[2024-07-19] MEDS ORDERED: cefTRIAXone\\ROCEPHIN 1 GM in Sodium Chloride 0.9% 100 ML IVPB SCH (15:00)
[2024-07-25] MEDS ORDERED: cloNIDine 0.3mg/24 Hour PATCH TD SCH (09:00)
== END 2024-07-19 13:40 | disposition home or self-care (01) ==
LOC: 2NO 13:45 → INTOOBSV 13:45
PROVIDERS: ADMIT Internal Medicine; ATTEND Internal Medicine
DX: J96.01 Acute respiratory failure with hypoxia (principal); I12.9 Hypertensive chronic kidney disease with stage 1 through stage 4 chronic kidney disease, or unspecified chronic kidney disease; N18.9 Chronic kidney disease, unspecified; N17.9 Acute kidney failure, unspecified; M10.9 Gout, unspecified; E78.5 Hyperlipidemia, unspecified; Z85.46 Personal history of malignant neoplasm of prostate; Z90.79 Acquired absence of other genital organ(s); Z88.5 Allergy status to narcotic agent; Z79.51 Long term (current) use of inhaled steroids; Z79.899 Other long term (current) drug therapy
CPT/HCPCS: 78451; 80053; 84145; 85025; 94640 ×3; 96372 ×2; 96374; 96375 ×2; 96376; A9540; G0378 ×2; J0456; J0696; J1644 ×2; J2919 ×2; J7050; J7120; 36415; J7620